=== PATIENT | male | born 1970 | race Caucasian/White ===

== ENCOUNTER 2021-02-22 09:11 | Observation (INO) | payer OTHER ==
[~2021-02-22] VITALS: Ht 175.3 cm; Wt 104.9 kg
[2021-02-22 10:52] LABS: RED BLOOD COUNT 1.76 M/UL (4.20-5.50); WHITE BLOOD COUNT 23.6 K/UL (4.5-11.0)
[2021-02-22 11:16] LABS: BUN/CREATININE RATIO 21 (0-10)
[2021-02-22 11:24] LABS: HEMOGLOBIN 5.4 gm/dl (14.0-17.5)
[2021-02-22] MEDS ORDERED: ALEVE220 MG PO (15:02)
[2021-02-23 04:40] LABS: RED BLOOD COUNT 3.18 M/UL (4.20-5.50); WHITE BLOOD COUNT 16.3 K/UL (4.5-11.0)
[2021-02-23 04:41] LABS: HEMOGLOBIN 9.7 gm/dl (14.0-17.5)
[2021-02-23 05:32] LABS: BUN/CREATININE RATIO 16 (0-10)
[2021-02-23 13:49] LABS: HEMOGLOBIN 9.3 gm/dl (14.0-17.5)
[2021-02-24 07:30] LABS: HEMOGLOBIN 9.8 gm/dl (14.0-17.5); RED BLOOD COUNT 3.22 M/UL (4.20-5.50)
[2021-02-24] MEDS ORDERED: PROTONIX 40 MG40 M1 PO (11:02)
== END 2021-02-24 13:47 | disposition home or self-care (01) ==
LOC: ER1 09:11 → M/S 14:01 → CDU 14:01 → M/S 15:35
PROVIDERS: Family Medicine; Physician Assistant; ADMIT Internal Medicine
DX: K25.7 Chronic gastric ulcer without hemorrhage or perforation (principal); K26.7 Chronic duodenal ulcer without hemorrhage or perforation; K22.11 Ulcer of esophagus with bleeding; K21.01 Gastro-esophageal reflux disease with esophagitis, with bleeding; D62 Acute posthemorrhagic anemia; R55 Syncope and collapse; D72.829 Elevated white blood cell count, unspecified; E87.6 Hypokalemia; Z20.822 Contact with and (suspected) exposure to COVID-19; Z79.1 Long term (current) use of non-steroidal anti-inflammatories (NSAID); Z79.899 Other long term (current) drug therapy; Z88.8 Allergy status to other drugs, medicaments and biological substances
CPT/HCPCS: 36415; 70450; 71045; 80048; 80053; 81001; 82272; 82550; 82553; 83735; 83874; 84439; 84443; 84484; 85014; 85018; 85025; 85379; 86850; 86900; 86901; 86920; 90715; 93005; 96374; 96375; 96376; 99285; C9113; G0378; J2250; J2405; J3010; J7030; J7040; P9016; Q9967; U0002

== ENCOUNTER → 2021-03-26 | Day surgery (SDC) | payer OTHER ==
[~2021-03-26] MED LIST: ALEVE220 MG PO; PROTONIX 40 MG40 M1 PO
== END | disposition home or self-care (01) ==
LOC: OR 06:07
DX: Z12.11 Encounter for screening for malignant neoplasm of colon (principal); D37.5 Neoplasm of uncertain behavior of rectum; D12.4 Benign neoplasm of descending colon; K64.1 Second degree hemorrhoids; K29.51 Unspecified chronic gastritis with bleeding; K26.4 Chronic or unspecified duodenal ulcer with hemorrhage; K25.4 Chronic or unspecified gastric ulcer with hemorrhage; D62 Acute posthemorrhagic anemia; B96.81 Helicobacter pylori [H. pylori] as the cause of diseases classified elsewhere; E66.9 Obesity, unspecified; Z68.33 Body mass index [BMI] 33.0-33.9, adult; Z79.899 Other long term (current) drug therapy
CPT/HCPCS: J1885; J2704; J7040